=== PATIENT | male | born 1995 | race Caucasian/White ===

== ENCOUNTER 2017-12-02 20:40 | Emergency (ER) | payer OTHER ==
[~2017-12-02] VITALS: Ht 190.5 cm; Wt 133.9 kg
[2017-12-02 21:15] LABS: HEMATOCRIT 45.8 % (38.0-50.0); HEMOGLOBIN 15.7 G/DL (12.5-16.6); MCH 29.3 PG (29.0-34.0); MCHC 34.3 G/DL (30.0-36.0); MCV 85.4 FL (86-99); PLATELET COUNT 239 K/uL (156-360); RBC DIS.WIDTH-CV 12.6 % (11.8-14.6); RBC DIS.WIDTH-SD 39.4 % (39-53); RED BLOOD COUNT 5.36 M/uL (4.00-5.50); WHITE BLOOD COUNT 5.2 K/uL (4.1-10.2)
[2017-12-02 21:38] LABS: ALBUMIN 4.6 g/dL (3.2-4.8); CHLORIDE 103 mEq/L (99-109); POTASSIUM 4.2 mEq/L (3.7-5.4); SODIUM 136 mEq/L (136-147)
[2017-12-02 21:41] LABS: GLUCOSE 98 mg/dL (70-99); TOTAL PROTEIN 7.9 g/dL (6.4-8.3)
[2017-12-02 21:43] LABS: TOTAL BILIRUBIN 0.8 mg/dL (0.0-1.0)
[2017-12-02 21:44] LABS: ALKALINE PHOSPHATASE 103 IU/L (3-129); CREATININE 1.3 mg/dL (0.6-1.3); GFR ESTIMATE (CALCULATED) > 59 mL/min/ (58.99-99999)
[2017-12-02 21:45] LABS: UREA NITROGEN (BUN) 15 mg/dL (9-23)
[2017-12-02 21:46] LABS: AST (GOT) 40 IU/L (2-34)
[2017-12-02 21:47] LABS: ALT (GPT) 50 IU/L (3-49)
[2017-12-02 21:55] LABS: APPEARANCE CLEAR ((CLEAR)); BILIRUBIN NEGATIVE; BLOOD NEGATIVE; COLOR YELLOW ((YELLOW)); GLUCOSE (STRIP) NEGATIVE; KETONES NEGATIVE; LEUKOCYTES NEGATIVE; NITRITE NEGATIVE; PROTEIN (STRIP) NEGATIVE; SPECIFIC GRAVITY 1.021 (1.000-1.030); UCUL ADDED? NO
[2017-12-03] MEDS ORDERED: MOTRIN600 MG PO (03:44)
[2017-12-03] MEDS ORDERED: ZOFRAN4 MG PO (03:44)
[2017-12-03 04:10] VITALS: BP 132/82
[2017-12-04] MEDS ORDERED: ZOFRAN ODT4 MG PO (15:52)
[2017-12-04] MEDS ORDERED: TORADOL10 MG PO (15:52)
== END 2017-12-03 04:12 | disposition home or self-care (01) ==
LOC: EME 20:40
DX: I88.0 Nonspecific mesenteric lymphadenitis (principal); J45.909 Unspecified asthma, uncomplicated
CPT/HCPCS: 74177; 80053; 81003; 85027; 99281; 99285; J1885; J2270; J2405; J7030

== ENCOUNTER 2017-12-04 12:01 | Emergency (ER) | payer OTHER ==
[~2017-12-04] VITALS: Ht 190.5 cm; Wt 135.4 kg
[~2017-12-04 12:01] MED LIST: MOTRIN600 MG PO; ZOFRAN4 MG PO
[2017-12-04 12:36] LABS: HEMATOCRIT 40.5 % (38.0-50.0); HEMOGLOBIN 13.8 G/DL (12.5-16.6); MCH 29.4 PG (29.0-34.0); MCHC 34.1 G/DL (30.0-36.0); MCV 86.2 FL (86-99); PLATELET COUNT 201 K/uL (156-360); RBC DIS.WIDTH-CV 12.7 % (11.8-14.6); RBC DIS.WIDTH-SD 40.2 % (39-53); WHITE BLOOD COUNT 4.7 K/uL (4.1-10.2)
[2017-12-04 12:44] LABS: ALBUMIN 3.9 g/dL (3.2-4.8)
[2017-12-04 12:45] LABS: CHLORIDE 104 mEq/L (99-109); POTASSIUM 4.5 mEq/L (3.7-5.4); SODIUM 136 mEq/L (136-147)
[2017-12-04 12:47] LABS: GLUCOSE 100 mg/dL (70-99)
[2017-12-04 12:50] LABS: ALKALINE PHOSPHATASE 127 IU/L (3-129)
[2017-12-04 12:51] LABS: CREATININE 1.3 mg/dL (0.6-1.3); GFR ESTIMATE (CALCULATED) > 59 mL/min/ (58.99-99999)
[2017-12-04 12:52] LABS: AST (GOT) 50 IU/L (2-34); UREA NITROGEN (BUN) 12 mg/dL (9-23)
[2017-12-04 12:54] LABS: ALT (GPT) 60 IU/L (3-49); LIPASE 17 U/L (1.0-51.0)
[2017-12-04 12:57] LABS: TOTAL BILIRUBIN 0.6 mg/dL (0.0-1.0); TOTAL PROTEIN 6.7 g/dL (6.4-8.3)
[2017-12-04 13:28] LABS: MONOSPOT (MONONUCLEOSIS SEROL) NEGATIVE
[2017-12-04 13:48] LABS: ABS NEUTROPHIL COUNT 2.7; ANISOCYTOSIS 1+; ATYPICAL LYMPHOCYTE 16.7 %; BAND NEUTROPHILS 15.8 % (0-8.0); EOSINOPHIL ABS CT 0.1; EOSINOPHILS 1.8 % (0-5.0); LYMPHOCYTES 18.4 % (15.0-45.0); MICROCYTOSIS 1+; MONOCYTES 6.1 % (0-9.0); PLAT.SUFFICIENCY ADEQUATE; SEG.NEUTROPHILS 41.2 % (46.0-76.0); SMUDGE CELLS 8.8
[2017-12-04] MEDS ORDERED: ZOFRAN ODT4 MG PO (15:52)
[2017-12-04] MEDS ORDERED: TORADOL10 MG PO (15:52)
[2017-12-04 16:23] VITALS: BP 130/77
[2017-12-07 11:12] LABS: Cytomegalovirus IgG Antibody+ <0.60 U/mL (<0.60); Cytomegalovirus IgM Antibody+ <30.00 AU/mL (<30.00)
== END 2017-12-04 16:48 | disposition home or self-care (01) ==
LOC: EME 12:01
PROVIDERS: Emergency Medicine
DX: B34.9 Viral infection, unspecified (principal); I88.0 Nonspecific mesenteric lymphadenitis; R51 Headache; Z87.09 Personal history of other diseases of the respiratory system
CPT/HCPCS: 80053; 83605; 83690; 85025; 86308; 86644 90; 86645 90; 86664; 86665; 87040; 99281; 99285; J0780; J1100; J1200; J7030